=== PATIENT | female | born 1970 | race American Indian/Alaskan Native ===

== ENCOUNTER → 2017-02-23 | Outpatient (CLI) | payer BC, OTHER ==
--- NOTE | 2017-02-26 09:35 | US ---
EXAM DATE: 02/23/17 PATIENT'S AGE: 46 Patient: MEGAN JOHNSON Facility: [place], [place] Site . Site : 1970 Study: US Head [id number]/[id number] 3:15:54 PM Ordering Physician: Brijesh Ventura Final Report: INDICATION: Lump felt by provider. FINDINGS/IMPRESSION: The area of clinical concern in the right neck is situated over the right internal jugular vein and right carotid artery, both of which exhibit a normal sonographic appearance. No mass, cyst, enlarged lymph node, or other sonographic abnormality is demonstrated in this area. The thyroid also appears sonographically normal. Dictated by: Noah Yanez MD @ 02/23/2017 20:26:25 (Electronic Signature) Report Signed by Proxy and Original Signed Document filed in the Medical Record. MTDD
== END ==
LOC: MW.US 14:29
PROVIDERS: ATTEND Nurse Practitioner Family
DX: R22.1 Localized swelling, mass and lump, neck (principal)
CPT/HCPCS: 76536-26; 76536-50

== ENCOUNTER 2017-09-30 16:10 | Emergency (ER) | payer BC, OTHER ==
[2017-09-30] MEDS ORDERED: Lidocaine 1% 20 ML MDV INJECT ONE (16:39)
--- NOTE | 2017-09-30 16:53 | EDM.PDOC ---
ED HPI GENERAL MEDICAL PROBLEM - General Chief Complaint: Laceration Stated Complaint: PT CUT LT RING FINGER Time Seen by Provider: 09/30/17 16:50 Source of Information: Reports: Patient - History of Present Illness INITIAL COMMENTS - FREE TEXT/NARRATIVE: HISTORY AND PHYSICAL: History of present illness: []Patient avulsed the tip of her left fourth digit with a scissor, she presents for bleeding, her tenderness was updated 2 weeks prior No fever nausea vomiting chills sweats subcentimeter lesion as above Review of systems: As per history of present illness and below otherwise all systems reviewed and negative. Past medical history: As per history of present illness and as reviewed below otherwise noncontributory. Surgical history: As per history of present illness and as reviewed below otherwise noncontributory. Social history: No reported history of drug or alcohol abuse. Family history: As per history of present illness and as reviewed below otherwise noncontributory. Physical exam: HEENT: Atraumatic, normocephalic, pupils reactive, negative for conjunctival pallor or scleral icterus, mucous membranes moist, throat clear, neck supple, nontender, trachea midline. Lungs: Clear to auscultation, breath sounds equal bilaterally, chest nontender. Heart: S1S2, regular, negative for clicks, rubs, or JVD. Abdomen: Soft, nondistended, nontender. Negative for masses or hepatosplenomegaly. Negative for costovertebral tenderness. Pelvis: Stable nontender. Genitourinary: Deferred. Rectal: Deferred. Extremities: Atraumatic, negative for cords or calf pain. Neurovascular unremarkable. Neuro: Awake, alert, oriented. Cranial nerves II through XII unremarkable. Cerebellum unremarkable. Motor and sensory unremarkable throughout. Exam nonfocal. Diagnostics: []Clinical Therapeutics: []Tetanus status is up-to-date 2 weeks prior Lidocaine less than 1 mL Silver nitrate Impression: Avulsion of tissue subcentimeter[] Definitive disposition and diagnosis as appropriate pending reevaluation and review of above. left 4th digit Pain Score (Numeric/FACES): 3 - Related Data Allergies Allergy/AdvReac Type Severity Reaction Status Date / Time cefuroxime axetil Allergy Facial Verified 09/30/17 16:35 [From Ceftin] Swelling doxycycline Allergy Other Verified 09/30/17 16:35 peas Allergy Rash Verified 09/30/17 16:35 Penicillins Allergy Rash Verified 09/30/17 16:35 pineapple Allergy Swollen Verified 09/30/17 16:35 Tongue spinach Allergy Rash Verified 09/30/17 16:35 Sulfa (Sulfonamide Allergy Rash Verified 09/30/17 16:35 Antibiotics) vicryl sutures Allergy Other Uncoded 09/30/17 16:35 Home Meds: Home Meds Furosemide [Lasix] 10 mg PO DAILY 09/30/17 [History] Losartan [Cozaar] 50 mg PO DAILY 09/30/17 [History] traZODone 50 mg PO BEDTIME PRN 09/30/17 [History] Past Medical History Other HEENT History: wears glasses, contacts Cardiovascular History: Reports: Hypertension Respiratory History: Reports: None Gastrointestinal History: Reports: None Genitourinary History: Reports: None 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: Dysfunctional Uterine Bleeding, Spontaneous Musculoskeletal History: Reports: Fracture, Fibromyalgia Other Musculoskeletal History: hx of fx toe Neurological History: Reports: Other (See Below) Psychiatric History: Reports: None Endocrine/Metabolic History: Reports: Obesity/BMI 30+ Hematologic History: Reports: None Immunologic History: Reports: None Oncologic (Cancer) History: Reports: None Dermatologic History: Reports: None - Past Surgical History Head Surgeries/Procedures: Reports: Shunt HEENT Surgical History: Reports: Tonsillectomy Cardiovascular Surgical History: Reports: None Respiratory Surgical History: Reports: None GI Surgical History: Reports: Colonoscopy Female Surgical History: Reports: Other (See Below) Neurological Surgical History: Reports: Other (See Below) Dermatological Surgical History: Reports: None Social & Family History - Family History Family Medical History: Noncontributory - Tobacco Use Smoking Status *Q: Never Smoker - Alcohol Use Days Per Week of Alcohol Use: 1 Number of Drinks Per Day: 2 Total Drinks Per Week: 2 - Recreational Drug Use Recreational Drug Use: No Drug Use in Last 12 Months: No ED ROS GENERAL - Review of Systems Review Of Systems: ROS reveals no pertinent complaints other than HPI. ED EXAM, SKIN/RASH Exam: See Below Course - Vital Signs Last Recorded V/S: Last Vital Signs Temp 98.5 F 09/30/17 16:37 Pulse 67 09/30/17 16:37 Resp 18 09/30/17 16:37 BP 173/87 H 09/30/17 16:37 Pulse Ox 99 09/30/17 16:37 - Orders/Labs/Meds Meds: Medications Discontinued Medications Generic Name Dose Route Start Last Admin Trade Name William PRN Reason Stop Dose Admin Lidocaine HCl 20 ml 09/30/17 16:39 Xylocaine 1% INJECT 09/30/17 16:40 ONETIME ONE Departure - Departure Time of Disposition: 16:52 Disposition: Home, Self-Care 01 Condition: Good Clinical Impression: Laceration - Discharge Information Additional Instructions: Bacitracin Telfa tube dressing Splint for protection Return if symptoms persist or worsen Standard wound care instructions Keep wound clean and dry for 48 hours The following information is given to patients seen in the emergency department who are being discharged to home. This information is to outline your options for follow-up care. We provide all patients seen in our emergency department with a follow-up referral. The need for follow-up, as well as the timing and circumstances, are variable depending upon the specifics of your emergency department visit. If you don't have a primary care physician on staff, we will provide you with a referral. We always advise you to contact your personal physician following an emergency department visit to inform them of the circumstance of the visit and for follow-up with them and/or the need for any referrals to a consulting specialist. The emergency department will also refer you to a specialist when appropriate. This referral assures that you have the opportunity for follow-up care with a specialist. All of these measure are taken in an effort to provide you with optimal care, which includes your follow-up. Under all circumstances we always encourage you to contact your private physician who remains a resource for coordinating your care. When calling for follow-up care, please make the office aware that this follow-up is from your recent emergency room visit. If for any reason you are refused follow-up, please contact the [facility] emergency department at and asked to speak to the emergency department charge nurse.
[2017-09-30 17:40] VITALS: BP 141/88
== END 2017-09-30 17:36 | disposition home or self-care (01) ==
LOC: MW.ED 16:10
DX: S61.215A Laceration without foreign body of left ring finger without damage to nail, initial encounter (principal); Z88.0 Allergy status to penicillin; Z88.1 Allergy status to other antibiotic agents; Z88.2 Allergy status to sulfonamides; Z88.8 Allergy status to other drugs, medicaments and biological substances; Z79.899 Other long term (current) drug therapy; W27.2XXA Contact with scissors, initial encounter
CPT/HCPCS: 99282

== ENCOUNTER 2020-06-23 18:27 | Emergency (ER) | payer BC, OTHER ==
--- NOTE | 2020-06-23 18:39 | EDM.PDOC ---
ED HPI GENERAL MEDICAL PROBLEM - General Chief Complaint: Lower Extremity Injury/Pain Stated Complaint: left foot injury Time Seen by Provider: 06/23/20 18:31 Source of Information: Reports: Patient History Limitations: Reports: No Limitations - History of Present Illness INITIAL COMMENTS - FREE TEXT/NARRATIVE: HISTORY AND PHYSICAL: History of present illness: Review of systems: As per history of present illness and below otherwise all systems reviewed and negative. Past medical history: As per history of present illness and as reviewed below otherwise noncontributory. Surgical history: As per history of present illness and as reviewed below otherwise noncontributory. Social history: See social history for further information Family history: As per history of present illness and as reviewed below otherwise noncontributory. Physical exam: General: Well-developed and well-nourished 49-year-old female. Alert and oriented. Nontoxic-appearing and in no acute distress. HEENT: Atraumatic, normocephalic, pupils equal and reactive bilaterally, negative for conjunctival pallor or scleral icterus, mucous membranes moist, trachea midline. No drooling or trismus noted. No meningeal signs. No hot potato voice noted. Lungs: Clear to auscultation, breath sounds equal bilaterally, chest nontender. Heart: S1S2, regular rate and rhythm without overt murmur Abdomen: Soft, nondistended, nontender. Skin: Intact, warm, dry. No lesions or rashes noted. Hematologic: No petechiae or purpra. Mucosa appropriate color and normal nail bed color and refill. Extremities: Atraumatic, moves all extremities per self without difficulty or deficits, negative for cords or calf pain. Neurovascular unremarkable. Neuro: Awake, alert, oriented. Cranial nerves II through XII unremarkable. Cerebellum unremarkable. Motor and sensory unremarkable throughout. Exam nonfocal. Notes: Supportive care measures were reviewed and discussed. Voices understanding and is agreeable to plan of care. Denies any further questions or concerns at this time. Diagnostics: X-ray Therapeutics: Prescription: Impression: Plan: 1. Rest, ice, elevate the affected extremity. Please wear the splint as directed. 2. Tylenol and/or Ibuprofen as needed for pain management. 3. Follow up with the Orthopedic provider as we discussed. Return to the ED as needed and as discussed. If your symptoms should worsen, new symptoms develop or any of the signs and symptoms we discussed should arise please return to the emergency room or call 911 (if needed). Definitive disposition and diagnosis as appropriate pending reevaluation and review of above. - Related Data Allergies Allergy/AdvReac Type Severity Reaction Status Date / Time cefuroxime axetil Allergy Facial Verified 10/01/18 19:31 [From Ceftin] Swelling doxycycline Allergy Other Verified 10/01/18 19:31 peas Allergy Rash Verified 10/01/18 19:31 Penicillins Allergy Rash Verified 10/01/18 19:31 pineapple Allergy Swollen Verified 10/01/18 19:31 Tongue spinach Allergy Rash Verified 10/01/18 19:31 Sulfa (Sulfonamide Allergy Rash Verified 10/01/18 19:31 Antibiotics) vicryl sutures Allergy Other Uncoded 10/01/18 19:31 Home Meds: Home Meds Furosemide [Lasix] 10 mg PO DAILY 09/30/17 [History] Losartan [Cozaar] 50 mg PO DAILY 09/30/17 [History] traZODone 50 mg PO BEDTIME PRN 09/30/17 [History] Past Medical History Other HEENT History: wears glasses, contacts Cardiovascular History: Reports: Hypertension Respiratory History: Reports: None Gastrointestinal History: Reports: None Genitourinary History: Reports: None 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: Dysfunctional Uterine Bleeding, Spontaneous Musculoskeletal History: Reports: Fracture, Fibromyalgia Other Musculoskeletal History: hx of fx toe Neurological History: Reports: Other (See Below) Psychiatric History: Reports: None Endocrine/Metabolic History: Reports: Obesity/BMI 30+ Hematologic History: Reports: None Immunologic History: Reports: None Oncologic (Cancer) History: Reports: None Dermatologic History: Reports: None - Infectious Disease History Infectious Disease History: Reports: Chicken Pox - Past Surgical History Head Surgeries/Procedures: Reports: Shunt HEENT Surgical History: Reports: Tonsillectomy Cardiovascular Surgical History: Reports: None Respiratory Surgical History: Reports: None GI Surgical History: Reports: Colonoscopy Female Surgical History: Reports: Hysterectomy Neurological Surgical History: Reports: Other (See Below) Dermatological Surgical History: Reports: None Social & Family History - Family History Family Medical History: Noncontributory Departure - Discharge Information Referrals: Wilton Santos MD [Primary Care Provider] -
[2020-06-23] MEDS ORDERED: Ibuprofen 600 MG Tab PO ONE (19:24)
--- NOTE | 2020-06-23 19:24 | EDM.PDOC ---
ED HPI GENERAL MEDICAL PROBLEM - General Chief Complaint: Lower Extremity Injury/Pain Stated Complaint: left foot injury Time Seen by Provider: 06/23/20 18:31 - History of Present Illness INITIAL COMMENTS - FREE TEXT/NARRATIVE: HISTORY AND PHYSICAL: History of present illness: This is a 49-year-old female who presents ER today complaining of pain to her second third and fourth toes secondary to stubbing her toes against the wall after slipping on ice on the hardwood floor at her home. Patient reports that she has no other pain or trauma. Patient reports after slipping on the ice she fell on her buttocks but has no discomfort or pain in her low back or buttock region. Patient reports that without ambulation her pain is a 2-3 out of 10 however whenever she bears weight she has a significant amount of pain. Patient reports that she took Tylenol at home prior to arrival. Review of systems: As per history of present illness and below otherwise all systems reviewed and negative. Past medical history: As per history of present illness and as reviewed below otherwise noncontributory. Surgical history: As per history of present illness and as reviewed below otherwise noncontributory. Social history: No reported history of drug or alcohol abuse. Family history: As per history of present illness and as reviewed below otherwise noncontributory. Physical exam: Constitutional: Patient is oriented to person, place, and time. Appears well- developed and well-nourished. No distress. HEENT: Moist mucous membranes Head: Normocephalic and atraumatic Eyes: Right eye exhibits no discharge. Left eye exhibits no discharge. No scleral icterus Neck: Normal range of motion. No tracheal deviation present. Cardiovascular: Normal rate and regular rhythm. Pulmonary: Effort normal, no respiratory distress. Abdominal: No distention Musculoskeletal: Normal range of motion Neurologic: Alert and oriented to person, place and time. Skin: [place], warm and dry. Psychiatric: Normal mood and affect. Behavior is normal. Judgment and thought content normal. Nursing note and vital signs have been reviewed Patient's ER physical exam is significant for tenderness to palpation with minimal soft tissue swelling to her second third and fourth toes of her foot. Patient has normal range of motion. No deformity. Diagnostics: X-ray right foot: Fracture identified within the shaft of the proximal phalanx of the fourth digit. No additional fracture dislocation or other bony abnormalities appreciated. Therapeutics: Ibuprofen Impression: 1. Fracture within shaft of proximal phalanx of fourth digit. Patient was placed in hollis tape 3rd-4th toe. Ibuprofen. Plan: 1. Rest, ice, elevate the affected extremity. Please wear the splint as directed. 2. Tylenol and/or Ibuprofen as needed for pain management. 3. Follow up with the Orthopedic provider as we discussed. Return to the ED as needed and as discussed. If your symptoms should worsen, new symptoms develop or any of the signs and symptoms we discussed should arise please return to the emergency room or call 911 (if needed). Definitive disposition and diagnosis as appropriate pending reevaluation and review of above. left foot Pain Score (Numeric/FACES): 2 - Related Data Allergies Allergy/AdvReac Type Severity Reaction Status Date / Time cefuroxime axetil Allergy Facial Verified 06/23/20 19:12 [From Ceftin] Swelling doxycycline Allergy Other Verified 06/23/20 19:12 peas Allergy Rash Verified 06/23/20 19:12 Penicillins Allergy Rash Verified 06/23/20 19:12 pineapple Allergy Swollen Verified 06/23/20 19:12 Tongue spinach Allergy Rash Verified 06/23/20 19:12 Sulfa (Sulfonamide Allergy Rash Verified 06/23/20 19:12 Antibiotics) vicryl sutures Allergy Other Uncoded 06/23/20 19:12 Home Meds: Home Meds Furosemide [Lasix] 10 mg PO DAILY 09/30/17 [History] Losartan [Cozaar] 50 mg PO DAILY 09/30/17 [History] traZODone 50 mg PO BEDTIME PRN 09/30/17 [History] Past Medical History Other HEENT History: wears glasses, contacts Cardiovascular History: Reports: Hypertension Respiratory History: Reports: None Gastrointestinal History: Reports: None Genitourinary History: Reports: None 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 Bleeding, Spontaneous Musculoskeletal History: Reports: Fracture, Fibromyalgia Other Musculoskeletal History: hx of fx toe Neurological History: Reports: Other (See Below) Psychiatric History: Reports: None Endocrine/Metabolic History: Reports: Obesity/BMI 30+ Hematologic History: Reports: None Immunologic History: Reports: None Oncologic (Cancer) History: Reports: None Dermatologic History: Reports: None - Infectious Disease History Infectious Disease History: Reports: Chicken Pox - Past Surgical History Head Surgeries/Procedures: Reports: Shunt HEENT Surgical History: Reports: Tonsillectomy Cardiovascular Surgical History: Reports: None Respiratory Surgical History: Reports: None GI Surgical History: Reports: Colonoscopy Female Surgical History: Reports: Hysterectomy Neurological Surgical History: Reports: Other (See Below) Dermatological Surgical History: Reports: None Social & Family History - Family History Family Medical History: Noncontributory - Tobacco Use Smoking Status *Q: Unknown Ever Smoked ED ROS GENERAL - Review of Systems Review Of Systems: Comprehensive ROS is negative, except as noted in HPI. ED EXAM, GENERAL - Physical Exam Exam: See Below Course - Vital Signs Last Recorded V/S: Last Vital Signs Temp 97.3 F 06/23/20 19:14 Pulse 73 06/23/20 19:14 Resp 16 06/23/20 19:14 BP 144/83 H 06/23/20 19:14 Pulse Ox 98 06/23/20 19:14 - Orders/Labs/Meds Meds: Medications Discontinued Medications Generic Name Dose Route Start Last Admin Trade Name Freq PRN Reason Stop Dose Admin Ibuprofen 600 mg 06/23/20 19:24 Motrin PO 06/23/20 19:25 ONETIME ONE Departure - Departure Time of Disposition: 19:54 Disposition: Home, Self-Care 01 Condition: Good Clinical Impression: Toe fracture, right - Discharge Information Instructions: Toe Fracture, [id number] Referrals: Wilton Santos MD [Primary Care Provider] - Forms: ED Department Discharge Additional Instructions: You were seen and evaluated in the ER today secondary to an injury to your right foot. It appears that you have a fracture of your fourth toe. This is treated by taping your third and fourth toes together to give it support. You will be given a prescription for ibuprofen to assist you with the pain. You may also take Tylenol. 1. Rest, ice, elevate the affected extremity. Please wear the splint as directed. 2. Tylenol and/or Ibuprofen as needed for pain management. 3. Follow up with the Orthopedic provider as we discussed. Return to the ED as needed and as discussed. If your symptoms should worsen, new symptoms develop or any of the signs and symptoms we discussed should arise please return to the emergency room or call 911 (if needed). The following information is given to patients seen in the emergency department who are being discharged to home. This information is to outline your options for follow-up care. We provide all patients seen in our emergency department with a follow-up referral. The need for follow-up, as well as the timing and circumstances, are variable depending upon the specifics of your emergency department visit. If you don't have a primary care physician on staff, we will provide you with a referral. We always advise you to contact your personal physician following an emergency department visit to inform them of the circumstance of the visit and for follow-up with them and/or the need for any referrals to a consulting specialist. The emergency department will also refer you to a specialist when appropriate. This referral assures that you have the opportunity for follow-up care with a specialist. All of these measure are taken in an effort to provide you with optimal care, which includes your follow-up. Under all circumstances we always encourage you to contact your private phys ician who remains a resource for coordinating your care. When calling for follow-up care, please make the office aware that this follow-up is from your recent emergency room visit. If for any reason you are refused follow-up, please contact the [facility] Emergency Department at and asked to speak to the emergency department charge nurse. Sepsis Event Note (ED) - Evaluation Sepsis Screening Result: No Definite Risk - Focused Exam Vital Signs: Vital Signs Temp Pulse Resp BP Pulse Ox 06/23/20 19:14 97.3 F 73 16 144/83 H 98
--- NOTE | 2020-06-23 19:38 | CR ---
Right foot: 3 views of the right foot were obtained. Comparison: No prior foot study. Large plantar spur is seen. Joint spaces are preserved. Fracture is identified within the shaft of the proximal phalanx of the fourth digit. No additional fracture, dislocation or other bony abnormality is appreciated. Impression: 1. Fracture within the fourth digit as described above. 2. Large plantar spur. Diagnostic code #3 This report was dictated in MDT
[2020-06-24 04:28] VITALS: BP 145/89; PULSE 61
== END 2020-06-23 20:19 | disposition home or self-care (01) ==
LOC: MW.ED 18:27
DX: S92.512A Displaced fracture of proximal phalanx of left lesser toe(s), initial encounter for closed fracture (principal); I10 Essential (primary) hypertension; E66.9 Obesity, unspecified; Z68.36 Body mass index [BMI] 36.0-36.9, adult; Z88.1 Allergy status to other antibiotic agents; Z88.0 Allergy status to penicillin; Z91.010 Allergy to peanuts; Z88.2 Allergy status to sulfonamides; Z91.018 Allergy to other foods; Z88.8 Allergy status to other drugs, medicaments and biological substances; W22.01XA Walked into wall, initial encounter; Y92.009 Unspecified place in unspecified non-institutional (private) residence as the place of occurrence of the external cause
CPT/HCPCS: 73630; 99283; A9270

== ENCOUNTER 2025-06-19 09:16 | Emergency (ER) | payer BC, OTHER ==
[2025-06-19 09:53] VITALS: BP 134/84; PULSE 75
[2025-06-19 10:46] LABS: BASOPHILS ABSOLUTE AUTO 0.04 K/uL (0.00-0.20); BASOPHILS PERCENT AUTO 0.7 % (0.0-1.0); EOSINOPHILS ABSOLUTE AUTO 0.30 K/uL (0.00-0.45); EOSINOPHILS PERCENT AUTO 5.0 % (0.0-6.0); IMMATURE GRAN ABSOLUTE AUTO 0.02 K/uL (0.00-0.05); IMMATURE GRAN PERCENT AUTO 0.3 % (0.0-0.4); LYMPHOCYTES ABSOLUTE AUTO 2.45 K/uL (1.00-4.80); LYMPHOCYTES PERCENT AUTO 40.7 % (24.0-44.0); MEAN PLATELET VOLUME 10.4 fL (9.4-12.3); MONOCYTES ABSOLUTE AUTO 0.52 K/uL (0.00-0.80); MONOCYTES PERCENT AUTO 8.6 % (0.0-8.0); NEUTROPHILS ABSOLUTE AUTO 2.69 K/uL (1.80-7.70); NEUTROPHILS PERCENT AUTO 44.7 % (41.0-71.0); NRBC ABSOLUTE 0.00 K/uL (0.00-0.02); NRBC PERCENT 0.0 /100WBC (0.0-0.2); PLATELET COUNT,PLT 185 K/uL (150-400); RED BLOOD CELL COUNT 4.54 M/uL (4.10-5.30); WHITE BLOOD CELL COUNT,WBC 6.02 K/uL (3.9-11.3)
[2025-06-19 11:09] LABS: A/G RATIO 1.2 (0.9-1.6); ALANINE AMINOTRANSFERASE,ALT 26 IU/L (14-63); ASPARTATE AMNIOTRANSFERASE,AST 23 IU/L (15-37); BILIRUBIN TOTAL 1.2 mg/dL (0.2-1.0); BLOOD UREA NITROGEN,BUN 28 mg/dL (7.0-18.0); CARBON DIOXIDE,CO2 31.4 mmol/L (21.0-32.0); CHLORIDE,CL 99 mmol/L (98-107); CREATININE 1.2 mg/dL (0.6-1.0); GLUCOSE RANDOM 93 mg/dL (74-106); POTASSIUM,K 4.1 mmol/L (3.5-5.1); PROTEIN TOTAL,TP 7.6 g/dL (6.4-8.2); SODIUM,NA 139 mmol/L (136-145)
[2025-06-19 11:11] LABS: ESTIMATED GFR 54 mL/min (>60)
[2025-06-19] MEDS: Ketorolac 30 MG/ML SDV IVPUSH ONE (12:04)
== END 2025-06-19 12:58 | disposition home or self-care (01) ==
LOC: MW.ED 09:16
DX: R25.2 Cramp and spasm (principal); I10 Essential (primary) hypertension; Z75.3 Unavailability and inaccessibility of health-care facilities; Z88.2 Allergy status to sulfonamides; Z91.048 Other nonmedicinal substance allergy status; Z91.018 Allergy to other foods; Z88.0 Allergy status to penicillin; Z79.899 Other long term (current) drug therapy
CPT/HCPCS: 36415; 80053; 83735; 85025; 93971; 96361; 96374; 99284; A9270; J1885; J7030; 99283